=== PATIENT | female | born 1955 | race Caucasian/White ===

== ENCOUNTER → 2017-01-17 | Outpatient (CLI) | payer MEDICAID ==
[2014-07-02 12:11] VITALS: BP 134/71
[2017-01-17 10:00] LABS: BLOOD UREA NITROGEN 18 mg/dL (7-18); CALCIUM 9.7 mg/dL (8.5-10.1); CHLORIDE 102 mmol/L (98-107); CREATININE 0.79 mg/dL (0.55-1.02); SODIUM 139 mmol/L (136-145); eGFR BLACK RACES > 60 (>60); eGFR NON BLACK RACES > 60 (>60)
== END | disposition home or self-care (01) ==
LOC: LAB 09:32
PROVIDERS: ATTEND Family Medicine
DX: E87.5 Hyperkalemia (principal)
CPT/HCPCS: 36415; 80048

== ENCOUNTER 2022-05-10 08:10 | Inpatient (IN) ==
[2022-05-10 09:46] LABS: BASOPHILS % (AUTO) 0.1 % (0.2-1.0); HEMATOCRIT 30.3 % (36.0-47.0); HEMOGLOBIN 10.1 g/dL (12.0-16.0); LYMPHOCYTES # (AUTO) 0.6 X10^3/uL (1.3-2.9); LYMPHOCYTES % (AUTO) 5.2 % (21.0-51.0); MEAN CORPUSCULAR HEMOGLOBIN 26.9 pg (27.0-34.0); MEAN CORPUSCULAR HGB CONC 33.2 g/dL (33.0-35.0); MEAN CORPUSCULAR VOLUME 81.2 fL (80.0-100.0); MEAN PLATELET VOLUME 10.7 fL (7.4-11.0); MONOCYTES % (AUTO) 8.3 % (0.0-13.0); NEUTROPHILS # (AUTO) 10.2 x10^3/uL (2.2-4.8); NEUTROPHILS % (AUTO) 86.4 % (42.0-75.0); RED BLOOD COUNT 3.73 X10^6/uL (3.5-5.4); RED CELL DISTRIBUTION WIDTH 16.7 % (11.6-16.5); WHITE BLOOD COUNT 11.8 X10^3/uL (3.6-10.0)
[2022-05-10 09:53] LABS: INR 1.19 (0.8-1.3)
[2022-05-10] MEDS: NS 1,000 ML IV 1,000 ML IV SCH (09:55)
[2022-05-10] MEDS: ZOSYN VIAL 3.375 GRAMS 3.375 G in NS 100 ML IV 100 ML IV SCH ×3 (09:55→21:13)
[2022-05-10 09:58] LABS: ALANINE AMINOTRANSFERASE 86 Units/L (12-78); ALBUMIN 2.8 g/dL (3.4-5.0); ALKALINE PHOSPHATASE 128 Units/L (46-116); ASPARTATE AMINO TRANSFERASE 61 Units/L (15-37); BLOOD UREA NITROGEN 13 mg/dL (7-18); CALCIUM 8.8 mg/dL (8.5-10.1); CARBON DIOXIDE 24.1 mmol/L (21-32); CHLORIDE 96 mmol/L (98-107); COR CA(FOR HYPOALB) 9.8 mg/dL (8.5-10.1); COR NA(FOR HYPERGLY) 132 mmol/L (136-145); CREATININE 0.75 mg/dL (0.55-1.02); SODIUM 128 mmol/L (136-145); TOTAL PROTEIN 7.1 g/dL (6.4-8.2); eGFR NON BLACK RACES > 60 (>60)
[2022-05-10 10:02] LABS: LACTIC ACID 1.3 mmol/L (0.4-2.0)
--- NOTE | 2022-05-10 10:38 | DR.H&P ---
H&P History & Physical for Day of: H&P Date: 05/10/22 Chief Complaint Chief Complaint: abdominal discomfort, febrile Allergies Allergies Allergy/AdvReac Type Severity Reaction Status Date / Time azithromycin Allergy Unknown Unverified 07/30/19 17:22 codeine Allergy Unknown Unverified 07/30/19 17:22 morphine Allergy Unknown Unverified 07/30/19 17:22 IV DYE Allergy Uncoded 07/30/19 17:22 History of Present Illness History of Present Illness: Ms Biswas is a 66y/o female resident of [facility]. She has a hx of recurrent UTI and was treated over there with Rocephin IM for UTI. She was found to have positive blood Cx and worsening abdominal distension so admitted to the hospital for further evaluation. She was started on IV Zosyn and hydration. CTAP was done which showed enlarged liver and moderate stool. She reports not having a proper BM in a couple weeks, she has been taking Milk of Mag and other laxatives. Denies N/V. She reports decreased appetite. Labs/imaging reviewed Plan: will order liver US to assess further, order CXR. Start enema and insert rosas for accurate I&Os. Urine and Blood Cx showing gram neg rods, follow final cultures. Continue IV Zosyn and hydration. Resume home medications. Monitor AM labs/imaging. Past Medical History Past Medical History: Anxiety, Arthritis, Coronary Artery Disease, Dyslipidemia, GERD, Hypertension and Seizures Past Surgical History Surgical History: Hysterectomy, Ortho Surgery and Tonsillectomy Family History Family Medical History: Diabetes Mellitus and Hypertension Medications Home Medications: azithromycin Allergy (Unknown, Unverified 07/30/19 17:22) codeine Allergy (Unknown, Unverified 07/30/19 17:22) morphine Allergy (Unknown, Unverified 07/30/19 17:22) IV DYE Allergy (Uncoded 07/30/19 17:22) Labs Result Diagrams: 05/11/22 04:23 05/11/22 04:23 Labs: Laboratory WBC 11.8 X10^3/uL (3.6-10.0) H 05/10/22 09:29 RBC 3.73 X10^6/uL (3.5-5.4) 05/10/22 09:29 Hgb 10.1 g/dL (12.0-16.0) L 05/10/22 09: Hct 30.3 % (36.0-47.0) L 05/10/22 09: MCV 81.2 fL (80.0-100.0) 05/10/22 09: MCH 26.9 pg (27.0-34.0) L 05/10/22 09: MCHC 33.2 g/dL (33.0-35.0) 05/10/22 09: RDW 16.7 % (11.6-16.5) H 05/10/22 09: Plt Count 145 X10^3/uL (150.0-450.0) L 05/10/22 09: MPV 10.7 fL (7.4-11.0) 05/10/22 09: Neut % (Auto) 86.4 % (42.0-75.0) H 05/10/22 09: Lymph % (Auto) 5.2 % (21.0-51.0) L 05/10/22 09: [place] % (Auto) 8.3 % (0.0-13.0) 05/10/22 09: Eos % (Auto) 0.0 % (0.9-2.9) L 05/10/22 09: Baso % (Auto) 0.1 % (0.2-1.0) L 05/10/22 09: Neut # (Auto) 10.2 x10^3/uL (2.2-4.8) H 05/10/22 09: Lymph # (Auto) 0.6 X10^3/uL (1.3-2.9) L 05/10/22 09: [place] # (Auto) 1.0 x10^3/uL (0.3-0.8) H 05/10/22 09: Eos # (Auto) 0.0 x10^3/uL (0.0-0.2) 05/10/22 09: Baso # (Auto) 0.0 X10^3/uL (0.0-0.1) 05/10/22 09: Absolute Nucleated RBC 0.0 /100WBC 05/10/22 09: PT 14.7 SECONDS (11.8-14.3) 01/31/23 09:29 INR Target Range - 05/10/22 09:29 INR 1.19 (0.8-1.3) 05/10/22 09:29 APTT 46.8 SECONDS (22.9-36.5) H 05/10/22 09:29 PTT Comment - 05/10/22 09:29 Sodium 128 mmol/L (136-145) L 05/10/22 09:29 Corrected Sodium 132 mmol/L (136-145) L 05/10/22 09:29 Potassium 4.1 mmol/L (3.5-5.1) 05/10/22 09:29 Chloride 96 mmol/L (98-107) L 05/10/22 09:29 Carbon Dioxide 24.1 mmol/L (21-32) 05/10/22 09:29 BUN 13 mg/dL (7-18) 05/10/22 09:29 Creatinine 0.75 mg/dL (0.55-1.02) 05/10/22 09:29 Est GFR (MDRD) Af Amer > 60 (>60) 05/10/22 09:29 Est GFR (MDRD) Non-Af > 60 (>60) 05/10/22 09:29 Glucose 286 mg/dL (65-99) H 05/10/22 09:29 Lactic Acid 1.3 mmol/L (0.4-2.0) 05/10/22 09:29 Calcium 8.8 mg/dL (8.5-10.1) 05/10/22 09:29 Corrected Calcium 9.8 mg/dL (8.5-10.1) 05/10/22 09:29 Total Bilirubin 0.50 mg/dL (0.2-1.0) 05/10/22 09:29 AST 61 Units/L (15-37) H 05/10/22 09:29 ALT 86 Units/L (12-78) H 05/10/22 09:29 Alkaline Phosphatase 128 Units/L (46-116) H 05/10/22 09:29 Total Protein 7.1 g/dL (6.4-8.2) 05/10/22 09:29 Albumin 2.8 g/dL (3.4-5.0) L 05/10/22 09:29 Globulin 4.3 g/dL (2.5-4.5) 05/10/22 09:29 Albumin/Globulin Ratio 0.7 Ratio (1.1-2.1) L 05/10/22 09:29 Review of Systems Constitutional: Fever and Weakness Eyes: No Symptoms Reported ENT: No Symptoms Reported Respiratory: Cough Cardiovascular: No Symptoms Reported Gastrointestinal: Abdominal Pain and Constipation Genitourinary: No Symptoms Reported Musculoskeletal: No Symptoms Reported Skin: No Symptoms Reported Neurological: No Symptoms Reported Physical Exam Vital Signs: Pulse Rate 92 Respiratory Rate 30 Blood Pressure [Right Arm] 130/78 Blood Pressure [Left Arm] 135/68 Blood Pressure 127/60 Oriented: Normal Eyes: Normal Ear: Normal Nose: Normal Throat: Normal Respiratory: Diminished Throughout Cardiovascular: Tachycardia Auscultation: Bowel Sounds: Decreased Palpation: Normal Tenderness: Other (distended) Skin: Normal Musculoskeletal: Normal Psychiatric: Normal Mood Description: Calm Affect: Normal Speech Pattern: Clear and Appropriate Assessment/Plan (1) UTI (urinary tract infection): Status: Acute (2) Bacteremia: Status: Acute (3) Constipation: Status: Acute (4) Hepatic steatosis: Status: Acute (5) Abdominal pain: Status: Acute (6) Transaminitis: Status: Acute (7) GERD (gastroesophageal reflux disease): Qualifiers: Esophagitis presence: without esophagitis Qualified Code(s): K21.9 - Gastro-esophageal reflux disease without esophagitis Status: Chronic (8) CAD (coronary artery disease): Status: Chronic (9) Osteoarthritis: Status: Chronic (10) Essential hypertension: Status: Chronic (11) Diabetes mellitus: Status: Acute Review H&P Reviewed: Yes Patient was examined?: Yes
[2022-05-10 11:05] VITALS: BMI 40.4
--- NOTE | 2022-05-10 12:45 | CT ---
HISTORYABD DISTENTIONSTUDYABDOMEN/PELVIS W/O CONCOMPARISONCT abdomen and pelvis without contrast from 09/14/2019.TECHNIQUEMultiple axial images of the abdomen and pelvis were obtained from the lung bases to the upper thighs without the administration of IV contrast. Dose reduction techniques including Automated Exposure Control (AEC) and adjustment of mA and kV were utilized.FINDINGSLack of contrast limits evaluation.Moderate motion artifact through the lung bases is noted. Mild motion artifact through the abdomen and pelvis. No discernible pulmonary pathology. The heart is normal in size. There is diffuse hepatic steatosis. The liver appears enlarged and extends into the right lower quadrant. The gallbladder common duct, spleen, pancreas, adrenal glands, and kidneys have a benign noncontrast appearance. The urinary bladder appears benign. Status post hysterectomy. Small fat containing left inguinal hernia. Appendix is not visualized and may be surgically absent. Negative for bowel obstruction. Moderate amount of colonic stool. Moderately atherosclerotic normal caliber abdominal aorta. No pathologic adenopathy. No free air, free fluid or collection. No acute osseous abnormality. There is grade 1 anterolisthesis at L4-L5 secondary to severe facet arthropathy.IMPRESSIONHepatic steatosis. No renal calculus or hydronephrosis.Small fat containing left inguinal hernia.Electronically signed by: Julio Hughes (May 10, 2022 12:43:59)
[2022-05-10] MEDS: TYLENOL 325 MG TAB PO PRN (15:14)
[2022-05-10] MEDS: CARDIZEM CD 240 MG 24-HR PO SCH (15:19)
[2022-05-10] MEDS: TOVIAZ PO SCH (15:20)
[2022-05-10] MEDS: LINZESS PO SCH (15:20)
[2022-05-10] MEDS: COLACE CAP 100 MG PO SCH ×2 (15:20→21:13)
[2022-05-10] MEDS: ZESTRIL TAB 20 MG PO SCH (15:21)
[2022-05-10] MEDS: NovoLIN R (or HumuLIN R) SC PRN (16:09)
--- NOTE | 2022-05-10 17:42 | RAD ---
HISTORYsobSTUDYCHEST, 1 VIEWCOMPARISONJanuary 2022TECHNIQUEChest radiographic imaging, AP portable projection, 1 imageFINDINGSNo cardiomegaly.No focal airspace disease.No pleural effusion.No pneumothorax.No acute osseous abnormality.IMPRESSIONNo imaging findings of acute cardiopulmonary disease.Electronically signed by: Teddy Muir (May 10, 2022 17:40:58)
[2022-05-10 17:46] LABS: BILIRUBIN,URINE NEGATIVE (NEGATIVE); BLOOD/HEMOGLOBIN,URINE 4+ (NEGATIVE); GLUCOSE, URINE NEGATIVE (NEGATIVE); KETONES,URINE NEGATIVE (NEGATIVE); LEUKOCYTE ESTERASE ,URINE 3+ (NEGATIVE); NITRITES,URINE POSITIVE (NEGATIVE); PROTEIN,URINE 3+ (NEGATIVE); UROBILINOGEN,URINE NORMAL (NORMAL)
[2022-05-10 17:52] LABS: APPEARANCE,URINE HAZY (CLEAR); COLOR,URINE YELLOW (YELLOW)
[2022-05-10 17:53] LABS: BACTERIA,URINE 1+ /HPF (NEGATIVE); RBC,URINE 30-50 /HPF (0-3); SQUAMOUS EPITHELIAL CELL,UR RARE /HPF (NEGATIVE)
[2022-05-10] MEDS: NORCO 10/325 TAB PO PRN (19:18)
[2022-05-10] MEDS: MELATONIN PO SCH (21:12)
[2022-05-10] MEDS: MILK OF MAGNESIA PO SCH (21:12)
[2022-05-10] MEDS: REQUIP PO SCH (21:12)
[2022-05-10] MEDS: DULCOLAX TAB EC 5 MG PO SCH (21:13)
[2022-05-10] MEDS: ROBITUSSIN DM PO PRN (22:24)
[2022-05-11] MEDS: ROBITUSSIN DM PO PRN (03:42)
[2022-05-11 04:50] LABS: BASOPHILS % (AUTO) 0.2 % (0.2-1.0); EOSINOPHILS % (AUTO) 0.1 % (0.9-2.9); HEMATOCRIT 27.4 % (36.0-47.0); HEMOGLOBIN 9.3 g/dL (12.0-16.0); LYMPHOCYTES # (AUTO) 0.9 X10^3/uL (1.3-2.9); LYMPHOCYTES % (AUTO) 9.9 % (21.0-51.0); MEAN CORPUSCULAR HEMOGLOBIN 27.3 pg (27.0-34.0); MEAN CORPUSCULAR VOLUME 80.3 fL (80.0-100.0); MEAN PLATELET VOLUME 10.7 fL (7.4-11.0); MONOCYTES # (AUTO) 1.3 x10^3/uL (0.3-0.8); MONOCYTES % (AUTO) 13.5 % (0.0-13.0); NEUTROPHILS # (AUTO) 7.3 x10^3/uL (2.2-4.8); NEUTROPHILS % (AUTO) 76.3 % (42.0-75.0); RED BLOOD COUNT 3.41 X10^6/uL (3.5-5.4); RED CELL DISTRIBUTION WIDTH 17.2 % (11.6-16.5); WHITE BLOOD COUNT 9.5 X10^3/uL (3.6-10.0)
[2022-05-11 05:02] LABS: ALANINE AMINOTRANSFERASE 100 Units/L (12-78); ALBUMIN 2.5 g/dL (3.4-5.0); ALKALINE PHOSPHATASE 136 Units/L (46-116); ASPARTATE AMINO TRANSFERASE 72 Units/L (15-37); BLOOD UREA NITROGEN 12 mg/dL (7-18); CALCIUM 8.6 mg/dL (8.5-10.1); CARBON DIOXIDE 27.3 mmol/L (21-32); CHLORIDE 96 mmol/L (98-107); COR CA(FOR HYPOALB) 9.8 mg/dL (8.5-10.1); COR NA(FOR HYPERGLY) 132 mmol/L (136-145); CREATININE 0.53 mg/dL (0.55-1.02); SODIUM 130 mmol/L (136-145); TOTAL PROTEIN 6.7 g/dL (6.4-8.2); eGFR NON BLACK RACES > 60 (>60)
[2022-05-11] MEDS: ZOSYN VIAL 3.375 GRAMS 3.375 G in NS 100 ML IV 100 ML IV SCH (05:23)
[2022-05-11] MEDS: NORCO 10/325 TAB PO PRN ×2 (05:23→14:30)
[2022-05-11] MEDS: NovoLIN R (or HumuLIN R) SC PRN (06:01)
[2022-05-11] MEDS ORDERED: ZESTRIL TAB 20 MG ONE (08:26)
[2022-05-11] MEDS: REQUIP PO SCH ×2 (08:30→21:34)
[2022-05-11] MEDS: LINZESS PO SCH (08:30)
[2022-05-11] MEDS: CARDIZEM CD 240 MG 24-HR PO SCH (08:30)
[2022-05-11] MEDS: COLACE CAP 100 MG PO SCH ×2 (08:31→21:33)
[2022-05-11] MEDS: ZESTRIL TAB 20 MG PO SCH (08:32)
[2022-05-11] MEDS: SINGULAIR TAB 10 MG PO SCH (08:33)
[2022-05-11] MEDS: PROTONIX INJ 40 MG VIAL IVP SCH (08:33)
[2022-05-11] MEDS: HEMOCYTE-PLUS PO SCH (08:33)
[2022-05-11] MEDS: NS 1,000 ML IV 1,000 ML IV SCH ×2 (08:34→14:01)
[2022-05-11] MEDS: CITRACAL + VITAMIN D PO SCH (08:35)
--- NOTE | 2022-05-11 08:58 | US ---
HISTORYElevated LFTs, sepsisSTUDYUltrasound liverCOMPARISONNoneTECHNIQUEMultiple clay scale and color flow Doppler images of the right upper quadrant of the abdomen were obtained with image documentation.FINDINGSLiver is echogenic suggesting fatty infiltration. Hepatopetal portal venous flow is seen on Doppler ultrasound. Hepatic artery and vein are patent. No evidence of cholelithiasis or cholecystitis. No biliary ductal dilation.IMPRESSIONThere is likely fatty infiltration of the liver.Electronically signed by: Red Rojas (May 11, 2022 08:57:05)
[2022-05-11] MEDS: LOVENOX INJ 40 MG SYR SC SCH (09:47)
[2022-05-11] MEDS: TOVIAZ PO SCH (09:47)
[2022-05-11] MEDS: MERREM VIAL 1 G in NS 100 ML IV 100 ML IV SCH ×3 (09:47→21:34)
--- NOTE | 2022-05-11 09:55 | PCM.PROG ---
Progress Note Progress Note for Day of Date of Exam: 05/11/22 Subjective Subjective: Patient seen at bedside, no acute events overnight. She had 2 small BMs after enema. She states she is feeling better, not as much abdominal discomfort. She has been on 2L NC, sats > 95%. Labs/imaging reviewed CXR: no acute process Urine and Blood Cx: E.coli ESBL + Plan: f/u on Liver US. Change Zosyn to Merrem. Continue hydration. Continue home medications. Monitor I&Os. Monitor labs and imaging. Past Medical Family Social History Allergies: Allergies azithromycin Allergy (Unknown, Unverified 07/30/19 17:22) codeine Allergy (Unknown, Unverified 07/30/19 17:22) morphine Allergy (Unknown, Unverified 07/30/19 17:22) IV DYE Allergy (Uncoded 07/30/19 17:22) Vital Signs and I&O's Vital Signs: Temperature 98.5 F Pulse Rate 80 Respiratory Rate 25 Blood Pressure [Right Arm] 130/78 Blood Pressure [Left Arm] 135/68 Blood Pressure 120/56 O2 Sat by Pulse Oximetry 94 Intake and Output: Intake & Output 05/08/22 05/09/22 05/10/22 05/11/22 23:59 23:59 23:59 23:59 Intake Total 2732 / 2732 691 / 691 Output Total 380 / 380 320 / 320 Balance 2352 / 2352 371 / 371 Physical Exam Oriented: Normal Eyes: Normal Ear: Normal Nose: Normal Throat: Normal Cardiovascular: Tachycardia Auscultation: Bowel Sounds: Normal Tenderness: Other (distended) Skin: Normal Musculoskeletal: Normal Psychiatric: Normal Mood Description: Calm Affect: Normal Speech Pattern: Clear and Appropriate Laboratory and Diagnostics Result Diagrams: 05/11/22 04:23 05/11/22 04:23 Labs: 05/10/22 17:23 Urine,Catheterized Urine Culture - Preliminary Laboratory WBC 9.5 X10^3/uL (3.6-10.0) 05/11/22 04: RBC 3.41 X10^6/uL (3.5-5.4) L 05/11/22 04: Hgb 9.3 g/dL (12.0-16.0) L 05/11/22 04: Hct 27.4 % (36.0-47.0) L 05/11/22 04:23 MCV 80.3 fL (80.0-100.0) 05/11/22 04:23 MCH 27.3 pg (27.0-34.0) 05/11/22 04: MCHC 34.0 g/dL (33.0-35.0) 05/11/22 04:23 RDW 17.2 % (11.6-16.5) H 05/11/22 04:23 Plt Count 135 X10^3/uL (150.0-450.0) L 05/11/22 04:23 MPV 10.7 fL (7.4-11.0) 05/11/22 04:23 Neut % (Auto) 76.3 % (42.0-75.0) H 05/11/22 04: Lymph % (Auto) 9.9 % (21.0-51.0) L 05/11/22 04:23 [place] % (Auto) 13.5 % (0.0-13.0) H 05/11/22 04:23 Eos % (Auto) 0.1 % (0.9-2.9) L 05/11/22 04:23 Baso % (Auto) 0.2 % (0.2-1.0) 05/11/22 04: Neut # (Auto) 7.3 x10^3/uL (2.2-4.8) H 05/11/22 04:23 Lymph # (Auto) 0.9 X10^3/uL (1.3-2.9) L 05/11/22 04:23 [place] # (Auto) 1.3 x10^3/uL (0.3-0.8) H 05/11/22 04:23 Eos # (Auto) 0.0 x10^3/uL (0.0-0.2) 05/11/22 04:23 Baso # (Auto) 0.0 X10^3/uL (0.0-0.1) 05/11/22 04: Absolute Nucleated RBC 0.0 /100WBC 05/11/22 04: PT 14.7 SECONDS (11.8-14.3) 05/10/22 09:29 INR Target Range - 05/10/22 09:29 INR 1.19 (0.8-1.3) 05/10/22 09:29 APTT 46.8 SECONDS (22.9-36.5) H 05/10/22 09:29 PTT Comment - 05/10/22 09:29 Sodium 130 mmol/L (136-145) L 05/11/22 04:23 Corrected Sodium 132 mmol/L (136-145) L 05/11/22 04:23 Potassium 4.0 mmol/L (3.5-5.1) 05/11/22 04:23 Chloride 96 mmol/L (98-107) L 05/11/22 04:23 Carbon Dioxide 27.3 mmol/L (21-32) 05/11/22 04:23 BUN 12 mg/dL (7-18) 05/11/22 04:23 Creatinine 0.53 mg/dL (0.55-1.02) L 05/11/22 04:23 Est GFR (MDRD) Af Amer > 60 (>60) 05/11/22 04:23 Est GFR (MDRD) Non-Af > 60 (>60) 05/11/22 04:23 Glucose 173 mg/dL (65-99) H 05/11/22 04:23 POC Glucose (mg/dL) 306 mg/dL (65-99) H 05/11/22 05:41 Lactic Acid 0.8 mmol/L (0.4-2.0) 05/10/22 13:58 Calcium 8.6 mg/dL (8.5-10.1) 05/11/22 04:23 Corrected Calcium 9.8 mg/dL (8.5-10.1) 05/11/22 04:23 Total Bilirubin 0.40 mg/dL (0.2-1.0) 05/11/22 04:23 AST 72 Units/L (15-37) H 05/11/22 04:23 ALT 100 Units/L (12-78) H 05/11/22 04:23 Alkaline Phosphatase 136 Units/L (46-116) H 05/11/22 04:23 Total Protein 6.7 g/dL (6.4-8.2) 05/11/22 04:23 Albumin 2.5 g/dL (3.4-5.0) L 05/11/22 04:23 Globulin 4.2 g/dL (2.5-4.5) 05/11/22 04: Albumin/Globulin Ratio 0.6 Ratio (1.1-2.1) L 05/11/22 04:23 Specimen Type Catherized urine 05/10/22 17:23 Urine Color Yellow (YELLOW) 05/10/22 17:23 Urine Appearance Hazy (CLEAR) 05/10/22 17: Urine pH 6.0 (5.0 - 8.0) 05/10/22 17:23 Ur Specific [place] 1.015 (1.000-1.030) 05/10/22 17:23 Urine Protein 3+ (NEGATIVE) 05/10/22 17: Urine Glucose (UA) Negative (NEGATIVE) 05/10/22 17: Urine Ketones Negative (NEGATIVE) 05/10/22 17: Urine Blood 4+ (NEGATIVE) 05/10/22 17:23 Urine Nitrite Positive (NEGATIVE) 05/10/22 17: Urine Bilirubin Negative (NEGATIVE) 05/10/22 17: Urine Urobilinogen Normal (NORMAL) 05/10/22 17:23 Ur Leukocyte Esterase 3+ (NEGATIVE) 05/10/22 17:23 Urine RBC 30-50 /HPF (0-3) A 05/10/22 17: Urine WBC 20-30 /HPF (0-5) A 05/10/22 17:23 Ur Squamous Epith Cells Rare /HPF (NEGATIVE) 05/10/22 17:23 Urine Bacteria 1+ /HPF (NEGATIVE) 05/10/22 17:23 Ur Culture Indicated? Yes/culture set up 05/10/22 17:23 Plan (1) UTI (urinary tract infection): Status: Acute (2) Bacteremia: Status: Acute (3) Constipation: Status: Acute (4) Hepatic steatosis: Status: Acute (5) Abdominal pain: Status: Acute (6) Transaminitis: Status: Acute (7) GERD (gastroesophageal reflux disease): Status: Chronic Qualifiers: Esophagitis presence: without esophagitis Qualified Code(s): K21.9 - Gastro-esophageal reflux disease without esophagitis (8) CAD (coronary artery disease): Status: Chronic (9) Osteoarthritis: Status: Chronic (10) Essential hypertension: Status: Chronic (11) Diabetes mellitus: Status: Acute
[2022-05-11] MEDS: TYLENOL 325 MG TAB PO PRN (15:23)
[2022-05-11] MEDS: PEPCID TAB 20 MG PO SCH (21:32)
[2022-05-11] MEDS: MELATONIN PO SCH (21:32)
[2022-05-11] MEDS: DULCOLAX TAB EC 5 MG PO SCH (21:33)
[2022-05-11] MEDS: MILK OF MAGNESIA PO SCH (21:33)
[2022-05-12 05:10] LABS: BASOPHILS % (AUTO) 0.1 % (0.2-1.0); EOSINOPHILS # (AUTO) 0.1 x10^3/uL (0.0-0.2); EOSINOPHILS % (AUTO) 0.6 % (0.9-2.9); HEMATOCRIT 26.9 % (36.0-47.0); HEMOGLOBIN 9.2 g/dL (12.0-16.0); LYMPHOCYTES % (AUTO) 9.5 % (21.0-51.0); MEAN CORPUSCULAR HEMOGLOBIN 27.5 pg (27.0-34.0); MEAN CORPUSCULAR HGB CONC 34.1 g/dL (33.0-35.0); MEAN CORPUSCULAR VOLUME 80.7 fL (80.0-100.0); MEAN PLATELET VOLUME 11.1 fL (7.4-11.0); MONOCYTES # (AUTO) 1.2 x10^3/uL (0.3-0.8); MONOCYTES % (AUTO) 11.9 % (0.0-13.0); NEUTROPHILS # (AUTO) 8.1 x10^3/uL (2.2-4.8); NEUTROPHILS % (AUTO) 77.9 % (42.0-75.0); RED BLOOD COUNT 3.33 X10^6/uL (3.5-5.4); RED CELL DISTRIBUTION WIDTH 17.1 % (11.6-16.5); WHITE BLOOD COUNT 10.4 X10^3/uL (3.6-10.0)
[2022-05-12] MEDS: NS 1,000 ML IV 1,000 ML IV SCH (05:19)
[2022-05-12] MEDS: MERREM VIAL 1 G in NS 100 ML IV 100 ML IV SCH ×3 (05:25→21:44)
[2022-05-12 05:33] LABS: ALANINE AMINOTRANSFERASE 125 Units/L (12-78); ALBUMIN 2.2 g/dL (3.4-5.0); ALKALINE PHOSPHATASE 177 Units/L (46-116); ASPARTATE AMINO TRANSFERASE 68 Units/L (15-37); BLOOD UREA NITROGEN 8 mg/dL (7-18); CALCIUM 8.5 mg/dL (8.5-10.1); CARBON DIOXIDE 27.7 mmol/L (21-32); CHLORIDE 96 mmol/L (98-107); COR CA(FOR HYPOALB) 9.9 mg/dL (8.5-10.1); COR NA(FOR HYPERGLY) 133 mmol/L (136-145); CREATININE 0.45 mg/dL (0.55-1.02); SODIUM 132 mmol/L (136-145); TOTAL PROTEIN 6.5 g/dL (6.4-8.2); eGFR NON BLACK RACES > 60 (>60)
[2022-05-12] MEDS ORDERED: ZESTRIL TAB 20 MG ONE (08:23)
[2022-05-12] MEDS: CARDIZEM CD 240 MG 24-HR PO SCH (08:29)
[2022-05-12] MEDS: PROTONIX INJ 40 MG VIAL IVP SCH (08:29)
[2022-05-12] MEDS: COLACE CAP 100 MG PO SCH ×2 (08:30→21:37)
[2022-05-12] MEDS: PEPCID TAB 20 MG PO SCH ×2 (08:31→21:37)
[2022-05-12] MEDS: HEMOCYTE-PLUS PO SCH (08:31)
[2022-05-12] MEDS: REQUIP PO SCH ×2 (08:31→21:36)
[2022-05-12] MEDS: SINGULAIR TAB 10 MG PO SCH (08:31)
[2022-05-12] MEDS: LOVENOX INJ 40 MG SYR SC SCH (08:37)
[2022-05-12] MEDS: LINZESS PO SCH (08:39)
[2022-05-12] MEDS: ZESTRIL TAB 20 MG PO SCH (08:39)
[2022-05-12] MEDS: CITRACAL + VITAMIN D PO SCH (08:39)
[2022-05-12] MEDS: TOVIAZ PO SCH (08:39)
--- NOTE | 2022-05-12 09:51 | PCM.PROG ---
Progress Note Progress Note for Day of Date of Exam: 05/12/22 Subjective Subjective: Patient seen at bedside, no acute events overnight. She states her abdomen feels distended again. Liver US showed fatty liver. She had small BMs yesterday. Denies N/V. She has been tolerating PO intake. Labs/imaging reviewed CXR: no acute process Urine and Blood Cx: E.coli ESBL + Plan: Will repeat KUB, continue Merrem. DC IVF. Continue home medications. Monitor I&Os. PT/OT as tolerated. Monitor labs and imaging. Past Medical Family Social History Allergies: Allergies azithromycin Allergy (Unknown, Unverified 07/30/19 17:22) codeine Allergy (Unknown, Unverified 07/30/19 17:22) morphine Allergy (Unknown, Unverified 07/30/19 17:22) IV DYE Allergy (Uncoded 07/30/19 17:22) Vital Signs and I&O's Vital Signs: Temperature 98.4 F Pulse Rate 90 Respiratory Rate 45 Blood Pressure [Right Arm] 130/78 Blood Pressure [Left Arm] 135/68 Blood Pressure 120/56 O2 Sat by Pulse Oximetry 97 Intake and Output: Intake & Output 05/09/22 05/10/22 05/11/22 05/12/22 23:59 23:59 23:59 23:59 Intake Total 2732 / 2732 2643 / 2643 599 / 599 Output Total 380 / 380 1320 / 1320 800 / 800 Balance 2352 / 2352 1323 / 1323 -201 / -201 Physical Exam Oriented: Normal Eyes: Normal Ear: Normal Nose: Normal Throat: Normal Cardiovascular: Normal Auscultation: Bowel Sounds: Normal Tenderness: Diffuse, Mild and Other (distended); negative Guarding or Rigidity Skin: Normal Musculoskeletal: Normal Psychiatric: Normal Mood Description: Calm Affect: Normal Speech Pattern: Clear and Appropriate Laboratory and Diagnostics Result Diagrams: 05/12/22 04:05 05/12/22 04:05 Labs: 05/10/22 17:23 Urine,Catheterized Urine Culture - Preliminary Laboratory WBC 10.4 X10^3/uL (3.6-10.0) H 05/12/22 04:05 RBC 3.33 X10^6/uL (3.5-5.4) L 05/12/22 04:05 Hgb 9.2 g/dL (12.0-16.0) L 05/12/22 04:05 Hct 26.9 % (36.0-47.0) L 05/12/22 04:05 MCV 80.7 fL (80.0-100.0) 05/12/22 04:05 MCH 27.5 pg (27.0-34.0) 05/12/22 04:05 MCHC 34.1 g/dL (33.0-35.0) 05/12/22 04:05 RDW 17.1 % (11.6-16.5) H 05/12/22 04:05 Plt Count 157 X10^3/uL (150.0-450.0) 05/12/22 04:05 MPV 11.1 fL (7.4-11.0) H 05/12/22 04:05 Neut % (Auto) 77.9 % (42.0-75.0) H 05/12/22 04:05 Lymph % (Auto) 9.5 % (21.0-51.0) L 05/12/22 04:05 [place] % (Auto) 11.9 % (0.0-13.0) 05/12/22 04:05 Eos % (Auto) 0.6 % (0.9-2.9) L 05/12/22 04:05 Baso % (Auto) 0.1 % (0.2-1.0) L 05/12/22 04:05 Neut # (Auto) 8.1 x10^3/uL (2.2-4.8) H 05/12/22 04:05 Lymph # (Auto) 1.0 X10^3/uL (1.3-2.9) L 05/12/22 04:05 [place] # (Auto) 1.2 x10^3/uL (0.3-0.8) H 05/12/22 04:05 Eos # (Auto) 0.1 x10^3/uL (0.0-0.2) 05/12/22 04:05 Baso # (Auto) 0.0 X10^3/uL (0.0-0.1) 05/12/22 04:05 Absolute Nucleated RBC 0.0 /100WBC 05/12/22 04:05 PT 14.7 SECONDS (11.8-14.3) 05/10/22 09:29 INR Target Range - 05/10/22 09:29 INR 1.19 (0.8-1.3) 05/10/22 09:29 APTT 46.8 SECONDS (22.9-36.5) H 05/10/22 09:29 PTT Comment - 05/10/22 09:29 Sodium 132 mmol/L (136-145) L 05/12/22 04:05 Corrected Sodium 133 mmol/L (136-145) L 05/12/22 04:05 Potassium 3.7 mmol/L (3.5-5.1) 05/12/22 04:05 Chloride 96 mmol/L (98-107) L 05/12/22 04:05 Carbon Dioxide 27.7 mmol/L (21-32) 05/12/22 04:05 BUN 8 mg/dL (7-18) 05/12/22 04:05 Creatinine 0.45 mg/dL (0.55-1.02) L 05/12/22 04:05 Est GFR (MDRD) Af Amer > 60 (>60) 05/12/22 04:05 Est GFR (MDRD) Non-Af > 60 (>60) 05/12/22 04:05 Glucose 145 mg/dL (65-99) H 05/12/22 04:05 POC Glucose (mg/dL) 153 mg/dL (65-99) H 05/12/22 05:27 Lactic Acid 0.8 mmol/L (0.4-2.0) 05/10/22 13:58 Calcium 8.5 mg/dL (8.5-10.1) 05/12/22 04:05 Corrected Calcium 9.9 mg/dL (8.5-10.1) 05/12/22 04:05 Total Bilirubin 0.30 mg/dL (0.2-1.0) 05/12/22 04:05 AST 68 Units/L (15-37) H 05/12/22 04:05 ALT 125 Units/L (12-78) H 05/12/22 04:05 Alkaline Phosphatase 177 Units/L (46-116) H 05/12/22 04:05 Total Protein 6.5 g/dL (6.4-8.2) 05/12/22 04:05 Albumin 2.2 g/dL (3.4-5.0) L 05/12/22 04:05 Globulin 4.3 g/dL (2.5-4.5) 05/12/22 04:05 Albumin/Globulin Ratio 0.5 Ratio (1.1-2.1) L 05/12/22 04:05 Specimen Type Catherized urine 05/10/22 17: Urine Color Yellow (YELLOW) 05/10/22 17: Urine Appearance Hazy (CLEAR) 05/10/22 17: Urine pH 6.0 (5.0 - 8.0) 05/10/22 17: Ur Specific [place] 1.015 (1.000-1.030) 05/10/22 17: Urine Protein 3+ (NEGATIVE) 05/10/22 17: Urine Glucose (UA) Negative (NEGATIVE) 05/10/22 17: Urine Ketones Negative (NEGATIVE) 05/10/22 17: Urine Blood 4+ (NEGATIVE) 05/10/22 17: Urine Nitrite Positive (NEGATIVE) 05/10/22 17: Urine Bilirubin Negative (NEGATIVE) 05/10/22 17: Urine Urobilinogen Normal (NORMAL) 05/10/22 17: Ur Leukocyte Esterase 3+ (NEGATIVE) 05/10/22 17: Urine RBC 30-50 /HPF (0-3) A 05/10/22 17: Urine WBC 20-30 /HPF (0-5) A 05/10/22 17:23 Ur Squamous Epith Cells Rare /HPF (NEGATIVE) 05/10/22 17: Urine Bacteria 1+ /HPF (NEGATIVE) 05/10/22 17:23 Ur Culture Indicated? Yes/culture set up 05/10/22 17:23 Plan (1) UTI (urinary tract infection): Status: Acute (2) Bacteremia: Status: Acute (3) Constipation: Status: Acute (4) Hepatic steatosis: Status: Acute (5) Abdominal pain: Status: Acute (6) Transaminitis: Status: Acute (7) GERD (gastroesophageal reflux disease): Status: Chronic Qualifiers: Esophagitis presence: without esophagitis Qualified Code(s): K21.9 - Gastro-esophageal reflux disease without esophagitis (8) CAD (coronary artery disease): Status: Chronic (9) Osteoarthritis: Status: Chronic (10) Essential hypertension: Status: Chronic (11) Diabetes mellitus: Status: Acute
--- NOTE | 2022-05-12 10:00 | RAD ---
HISTORYABDOMINAL PAIN, ABDOMINAL DISTENTIONSTUDYKUBCOMPARISONCT abdomen pelvis 05/10/2022.TECHNIQUESupine KUB, 3 images.FINDINGSLargely gas distended structure, likely stomach, extending into the right lower quadrant. Nonobstructive small bowel gas pattern. No definite pneumatosis, free air, or portal venous gas. No suspicious abdominal calcifications.IMPRESSIONGas distended structure, likely stomach, may be due to gastric outlet obstruction or gastroparesis. Consider CT for further evaluation as clinically warranted.Electronically signed by: Julio Hughes (May 12, 2022 09:58:47)
[2022-05-12] MEDS: REGLAN TAB 5 MG PO SCH ×3 (11:14→21:38)
[2022-05-12] MEDS: NORCO 10/325 TAB PO PRN (13:55)
[2022-05-12] MEDS: MELATONIN PO SCH (21:36)
[2022-05-12] MEDS: MILK OF MAGNESIA PO SCH (21:37)
[2022-05-12] MEDS: DULCOLAX TAB EC 5 MG PO SCH (21:37)
[2022-05-13] MEDS ORDERED: NS 1,000 ML IV 1,000 ML ONE (01:47)
[2022-05-13 05:11] LABS: BASOPHILS % (AUTO) 0.4 % (0.2-1.0); EOSINOPHILS # (AUTO) 0.1 x10^3/uL (0.0-0.2); EOSINOPHILS % (AUTO) 0.9 % (0.9-2.9); HEMATOCRIT 27.4 % (36.0-47.0); HEMOGLOBIN 9.3 g/dL (12.0-16.0); LYMPHOCYTES # (AUTO) 1.5 X10^3/uL (1.3-2.9); LYMPHOCYTES % (AUTO) 13.2 % (21.0-51.0); MEAN CORPUSCULAR HEMOGLOBIN 27.2 pg (27.0-34.0); MEAN CORPUSCULAR HGB CONC 33.8 g/dL (33.0-35.0); MEAN CORPUSCULAR VOLUME 80.3 fL (80.0-100.0); MEAN PLATELET VOLUME 10.6 fL (7.4-11.0); MONOCYTES % (AUTO) 9.3 % (0.0-13.0); NEUTROPHILS # (AUTO) 8.4 x10^3/uL (2.2-4.8); NEUTROPHILS % (AUTO) 76.2 % (42.0-75.0); RED BLOOD COUNT 3.41 X10^6/uL (3.5-5.4); RED CELL DISTRIBUTION WIDTH 16.9 % (11.6-16.5)
[2022-05-13 05:23] LABS: ALANINE AMINOTRANSFERASE 116 Units/L (12-78); ALBUMIN 2.1 g/dL (3.4-5.0); ALKALINE PHOSPHATASE 191 Units/L (46-116); ASPARTATE AMINO TRANSFERASE 51 Units/L (15-37); BLOOD UREA NITROGEN 8 mg/dL (7-18); CALCIUM 8.6 mg/dL (8.5-10.1); CARBON DIOXIDE 31.6 mmol/L (21-32); CHLORIDE 99 mmol/L (98-107); COR CA(FOR HYPOALB) 10.1 mg/dL (8.5-10.1); COR NA(FOR HYPERGLY) 139 mmol/L (136-145); CREATININE 0.45 mg/dL (0.55-1.02); SODIUM 138 mmol/L (136-145); TOTAL PROTEIN 6.3 g/dL (6.4-8.2); eGFR NON BLACK RACES > 60 (>60)
[2022-05-13] MEDS: MERREM VIAL 1 G in NS 100 ML IV 100 ML IV SCH ×3 (06:01→21:40)
[2022-05-13] MEDS: REGLAN TAB 5 MG PO SCH ×4 (06:02→21:10)
[2022-05-13] MEDS ORDERED: ZESTRIL TAB 20 MG ONE (07:46)
[2022-05-13] MEDS: PROTONIX INJ 40 MG VIAL IVP SCH (08:30)
[2022-05-13] MEDS: COLACE CAP 100 MG PO SCH ×2 (08:30→21:11)
[2022-05-13] MEDS: HEMOCYTE-PLUS PO SCH (08:31)
[2022-05-13] MEDS: LOVENOX INJ 40 MG SYR SC SCH (08:31)
[2022-05-13] MEDS: CITRACAL + VITAMIN D PO SCH (08:33)
[2022-05-13] MEDS: PEPCID TAB 20 MG PO SCH ×2 (08:34→21:10)
[2022-05-13] MEDS: SINGULAIR TAB 10 MG PO SCH (08:34)
[2022-05-13] MEDS: CARDIZEM CD 240 MG 24-HR PO SCH (08:34)
[2022-05-13] MEDS: ZESTRIL TAB 20 MG PO SCH (08:34)
[2022-05-13] MEDS: REQUIP PO SCH ×2 (08:34→21:11)
[2022-05-13] MEDS: LINZESS PO SCH (08:34)
[2022-05-13] MEDS: TOVIAZ PO SCH (08:53)
[2022-05-13] MEDS: NORCO 10/325 TAB PO PRN ×2 (13:37→21:17)
[2022-05-13] MEDS: MELATONIN PO SCH (21:10)
[2022-05-13] MEDS: MILK OF MAGNESIA PO SCH (21:12)
[2022-05-13] MEDS: DULCOLAX TAB EC 5 MG PO SCH (21:12)
[2022-05-14 05:16] LABS: BASOPHILS % (AUTO) 0.5 % (0.2-1.0); EOSINOPHILS # (AUTO) 0.2 x10^3/uL (0.0-0.2); EOSINOPHILS % (AUTO) 1.7 % (0.9-2.9); HEMATOCRIT 27.6 % (36.0-47.0); HEMOGLOBIN 9.1 g/dL (12.0-16.0); LYMPHOCYTES # (AUTO) 1.7 X10^3/uL (1.3-2.9); LYMPHOCYTES % (AUTO) 15.3 % (21.0-51.0); MEAN CORPUSCULAR HEMOGLOBIN 26.9 pg (27.0-34.0); MEAN CORPUSCULAR HGB CONC 33.1 g/dL (33.0-35.0); MEAN CORPUSCULAR VOLUME 81.1 fL (80.0-100.0); MEAN PLATELET VOLUME 10.1 fL (7.4-11.0); MONOCYTES % (AUTO) 8.9 % (0.0-13.0); NEUTROPHILS # (AUTO) 8.1 x10^3/uL (2.2-4.8); NEUTROPHILS % (AUTO) 73.6 % (42.0-75.0); RED CELL DISTRIBUTION WIDTH 17.5 % (11.6-16.5); WHITE BLOOD COUNT 10.9 X10^3/uL (3.6-10.0)
[2022-05-14 05:27] LABS: ALANINE AMINOTRANSFERASE 120 Units/L (12-78); ALBUMIN 2.1 g/dL (3.4-5.0); ALKALINE PHOSPHATASE 200 Units/L (46-116); ASPARTATE AMINO TRANSFERASE 57 Units/L (15-37); BLOOD UREA NITROGEN 11 mg/dL (7-18); CALCIUM 8.5 mg/dL (8.5-10.1); CARBON DIOXIDE 33.3 mmol/L (21-32); CHLORIDE 100 mmol/L (98-107); COR NA(FOR HYPERGLY) 139 mmol/L (136-145); CREATININE 0.48 mg/dL (0.55-1.02); SODIUM 139 mmol/L (136-145); TOTAL PROTEIN 6.2 g/dL (6.4-8.2); eGFR NON BLACK RACES > 60 (>60)
[2022-05-14] MEDS: MERREM VIAL 1 G in NS 100 ML IV 100 ML IV SCH ×3 (06:01→21:13)
[2022-05-14] MEDS: REGLAN TAB 5 MG PO SCH ×2 (07:47→11:41)
[2022-05-14] MEDS ORDERED: ZESTRIL TAB 20 MG ONE (08:20)
[2022-05-14] MEDS: LOVENOX INJ 40 MG SYR SC SCH (08:31)
[2022-05-14] MEDS: CITRACAL + VITAMIN D PO SCH (08:32)
[2022-05-14] MEDS: LINZESS PO SCH (08:32)
[2022-05-14] MEDS: PROTONIX INJ 40 MG VIAL IVP SCH (08:32)
[2022-05-14] MEDS: HEMOCYTE-PLUS PO SCH (08:32)
[2022-05-14] MEDS: NORCO 10/325 TAB PO PRN ×2 (08:33→15:45)
[2022-05-14] MEDS: ZESTRIL TAB 20 MG PO SCH (08:34)
[2022-05-14] MEDS: CARDIZEM CD 240 MG 24-HR PO SCH (08:34)
[2022-05-14] MEDS: PEPCID TAB 20 MG PO SCH ×2 (08:34→20:17)
[2022-05-14] MEDS: SINGULAIR TAB 10 MG PO SCH (08:34)
[2022-05-14] MEDS: REQUIP PO SCH ×2 (08:34→20:17)
[2022-05-14] MEDS: TOVIAZ PO SCH (08:34)
[2022-05-14] MEDS: COLACE CAP 100 MG PO SCH ×2 (08:35→20:17)
[2022-05-14] MEDS ORDERED: K-DUR TAB 20 MEQ PO PRN (12:01)
[2022-05-14] MEDS ORDERED: POTASSIUM CHL 60 MEQ/NS 0.45% 500 ML IV PRN (12:01)
[2022-05-14] MEDS ORDERED: K-RIDER 10 MEQ/NS 100 ML 10 MEQ/100 ML BAG IV PRN (12:01)
[2022-05-14] MEDS ORDERED: POTASSIUM CHL 40 MEQ/NS 0.45% 500 ML IV PRN (12:01)
[2022-05-14] MEDS ORDERED: POTASSIUM CHLORIDE LIQ 20 MEQ UDC PO PRN (12:01)
[2022-05-14] MEDS ORDERED: MICRO K EXTEN CAP 10 MEQ PO PRN (12:01)
--- NOTE | 2022-05-14 12:23 | RAD ---
HISTORYAbdominal distension.STUDYAbdomen one viewCOMPARISONKUB from 05/12/2022.FINDINGSTubes/lines: None.Bowel gas pattern: March gas is distension of the stomach is again seen with mild gas is distension of the small bowel and colon. The colon contains a moderate amount of stool.Free air: None seen.Additional findings: None.IMPRESSIONPersistent severe gaseous distension of the stomach with an otherwise nonspecific, nonobstructive bowel gas pattern.Electronically signed by: jV Ruffin (May 14, 2022 12:21:50)
--- NOTE | 2022-05-14 12:25 | DR.PROGNOT ---
HOSPITAL PROGRESS NOTE Progress Note for Day of: Progress Note Date: 05/14/22 Chief Complaint Chief Complaint: c/o abdominal distention , heartburn , nausea . had normal BM yesterday . last KUB showed dilated stomach . afebrile History of Present Illness History of Present Illness: no changes .. diabetic , very limited ambulation . UTI Past Medical Family Social History Allergies: Allergies azithromycin Allergy (Unknown, Verified 05/12/22 10:25) codeine Allergy (Unknown, Verified 05/12/22 10:25) morphine Allergy (Unknown, Verified 05/12/22 10:25) IV DYE Allergy (Unknown, Uncoded 05/12/22 10:25) Vital Signs Vital Signs: Temperature 98.2 F Pulse Rate 83 Respiratory Rate 24 Blood Pressure [Right Arm] 130/78 Blood Pressure [Left Arm] 135/68 Blood Pressure 153/70 O2 Sat by Pulse Oximetry 99 Physical Exam Oriented: Normal Eyes: Normal Ear: Normal Nose: Normal Throat: Normal Cardiovascular: Normal GI:Auscultation: Normal GI:Palpation: Normal GI: Tenderness: Epigastric (abdomen is distended ,tympanic , mainly in the epigastrium .. BS hypoactive ,); negative Guarding or Rigidity Skin: Normal Musculoskeletal: Normal Psychiatric: Normal Mood Description: Calm Affect: Normal Speech Pattern: Clear and Appropriate Laboratory and Diagnostics Result Diagrams: 05/14/22 04:00 05/14/22 04:00 Labs: 05/10/22 17:23 Urine,Catheterized Urine Culture - Final Escherichia Coli Laboratory WBC 10.9 X10^3/uL (3.6-10.0) H 05/14/22 04:00 RBC 3.40 X10^6/uL (3.5-5.4) L 05/14/22 04:00 Hgb 9.1 g/dL (12.0-16.0) L 05/14/22 04:00 Hct 27.6 % (36.0-47.0) L 05/14/22 04:00 MCV 81.1 fL (80.0-100.0) 05/14/22 04:00 MCH 26.9 pg (27.0-34.0) L 05/14/22 04:00 MCHC 33.1 g/dL (33.0-35.0) 05/14/22 04:00 RDW 17.5 % (11.6-16.5) H 05/14/22 04:00 Plt Count 277 X10^3/uL (150.0-450.0) 05/14/22 04:00 MPV 10.1 fL (7.4-11.0) 05/14/22 04:00 Neut % (Auto) 73.6 % (42.0-75.0) 05/14/22 04:00 Lymph % (Auto) 15.3 % (21.0-51.0) L 05/14/22 04:00 [place] % (Auto) 8.9 % (0.0-13.0) 05/14/22 04:00 Eos % (Auto) 1.7 % (0.9-2.9) 05/14/22 04:00 Baso % (Auto) 0.5 % (0.2-1.0) 05/14/22 04:00 Neut # (Auto) 8.1 x10^3/uL (2.2-4.8) H 05/14/22 04:00 Lymph # (Auto) 1.7 X10^3/uL (1.3-2.9) 05/14/22 04:00 [place] # (Auto) 1.0 x10^3/uL (0.3-0.8) H 05/14/22 04:00 Eos # (Auto) 0.2 x10^3/uL (0.0-0.2) 05/14/22 04:00 Baso # (Auto) 0.0 X10^3/uL (0.0-0.1) 05/14/22 04:00 Absolute Nucleated RBC 0.0 /100WBC 05/14/22 04:00 PT 14.7 SECONDS (11.8-14.3) 05/10/22 09:29 INR Target Range - 05/10/22 09:29 INR 1.19 (0.8-1.3) 05/10/22 09:29 APTT 46.8 SECONDS (22.9-36.5) H 05/10/22 09:29 PTT Comment - 05/10/22 09:29 Sodium 139 mmol/L (136-145) 05/14/22 04:00 Corrected Sodium 139 mmol/L (136-145) 05/14/22 04:00 Potassium 3.2 mmol/L (3.5-5.1) L 05/14/22 04:00 Chloride 100 mmol/L (98-107) 05/14/22 04:00 Carbon Dioxide 33.3 mmol/L (21-32) H 05/14/22 04:00 BUN 11 mg/dL (7-18) 05/14/22 04:00 Creatinine 0.48 mg/dL (0.55-1.02) L 05/14/22 04:00 Est GFR (MDRD) Af Amer > 60 (>60) 05/14/22 04:00 Est GFR (MDRD) Non-Af > 60 (>60) 05/14/22 04:00 Glucose 111 mg/dL (65-99) H 05/14/22 04:00 POC Glucose (mg/dL) 113 mg/dL (65-99) H 05/14/22 11:23 Lactic Acid 0.8 mmol/L (0.4-2.0) 05/10/22 13:58 Calcium 8.5 mg/dL (8.5-10.1) 05/14/22 04:00 Corrected Calcium 10.0 mg/dL (8.5-10.1) 05/14/22 04:00 Magnesium 1.9 mg/dL (2.0-2.9) L 05/14/22 04:00 Total Bilirubin 0.20 mg/dL (0.2-1.0) 05/14/22 04:00 AST 57 Units/L (15-37) H 05/14/22 04:00 ALT 120 Units/L (12-78) H 05/14/22 04:00 Alkaline Phosphatase 200 Units/L (46-116) H 05/14/22 04:00 Total Protein 6.2 g/dL (6.4-8.2) L 05/14/22 04:00 Albumin 2.1 g/dL (3.4-5.0) L 05/14/22 04:00 Globulin 4.1 g/dL (2.5-4.5) 05/14/22 04:00 Albumin/Globulin Ratio 0.5 Ratio (1.1-2.1) L 05/14/22 04:00 Specimen Type Catherized urine 05/10/22 17:23 Urine Color Yellow (YELLOW) 05/10/22 17: Urine Appearance Hazy (CLEAR) 05/10/22 17: Urine pH 6.0 (5.0 - 8.0) 05/10/22 17: Ur Specific [place] 1.015 (1.000-1.030) 05/10/22 17: Urine Protein 3+ (NEGATIVE) 05/10/22 17: Urine Glucose (UA) Negative (NEGATIVE) 05/10/22 17: Urine Ketones Negative (NEGATIVE) 05/10/22 17: Urine Blood 4+ (NEGATIVE) 05/10/22 17: Urine Nitrite Positive (NEGATIVE) 05/10/22: Urine Bilirubin Negative (NEGATIVE) 05/10/22: Urine Urobilinogen Normal (NORMAL) 05/10/22 17: Ur Leukocyte Esterase 3+ (NEGATIVE) 05/10/22 17: Urine RBC 30-50 /HPF (0-3) A 05/10/22 17: Urine WBC 20-30 /HPF (0-5) A 05/10/22 17: Ur Squamous Epith Cells Rare /HPF (NEGATIVE) 05/10/22 17: Urine Bacteria 1+ /HPF (NEGATIVE) 05/10/22 17: Ur Culture Indicated? Yes/culture set up 05/10/22 17: Problem Patient Problems: distended stomach with gastroparesis , DM. Hypokalemia . confinement to bed . to increase Reglan to 10 mg TID .add K to correct hypokalemia . if no improvement will insert NGT ..
[2022-05-14] MEDS: MAGNESIUM SULFATE 1 GRAM/100 mL PREMIX 1 G/100 ML BAG IV PRN ×2 (12:40→14:10)
[2022-05-14] MEDS: REGLAN TAB 10 MG PO SCH ×2 (17:07→20:16)
[2022-05-14] MEDS: MELATONIN PO SCH (20:16)
[2022-05-14] MEDS: MILK OF MAGNESIA PO SCH (20:19)
[2022-05-14] MEDS: KLOR-CON PO PRN (20:19)
[2022-05-14] MEDS: DULCOLAX TAB EC 5 MG PO SCH (20:34)
[2022-05-15] MEDS: NORCO 10/325 TAB PO PRN ×3 (00:02→17:07)
[2022-05-15] MEDS: TYLENOL 325 MG TAB PO PRN ×2 (03:27→21:04)
[2022-05-15 05:09] LABS: BASOPHILS # (AUTO) 0.1 X10^3/uL (0.0-0.1); BASOPHILS % (AUTO) 0.9 % (0.2-1.0); EOSINOPHILS # (AUTO) 0.2 x10^3/uL (0.0-0.2); EOSINOPHILS % (AUTO) 1.5 % (0.9-2.9); HEMOGLOBIN 9.1 g/dL (12.0-16.0); LYMPHOCYTES # (AUTO) 1.6 X10^3/uL (1.3-2.9); LYMPHOCYTES % (AUTO) 16.5 % (21.0-51.0); MEAN CORPUSCULAR HEMOGLOBIN 27.2 pg (27.0-34.0); MEAN CORPUSCULAR HGB CONC 33.6 g/dL (33.0-35.0); MEAN CORPUSCULAR VOLUME 80.9 fL (80.0-100.0); MEAN PLATELET VOLUME 9.7 fL (7.4-11.0); MONOCYTES # (AUTO) 0.7 x10^3/uL (0.3-0.8); NEUTROPHILS # (AUTO) 7.4 x10^3/uL (2.2-4.8); NEUTROPHILS % (AUTO) 74.1 % (42.0-75.0); RED BLOOD COUNT 3.34 X10^6/uL (3.5-5.4); RED CELL DISTRIBUTION WIDTH 16.6 % (11.6-16.5)
[2022-05-15] MEDS: MERREM VIAL 1 G in NS 100 ML IV 100 ML IV SCH ×3 (05:20→21:05)
[2022-05-15 05:26] LABS: ALANINE AMINOTRANSFERASE 100 Units/L (12-78); ALBUMIN 2.1 g/dL (3.4-5.0); ALKALINE PHOSPHATASE 190 Units/L (46-116); ASPARTATE AMINO TRANSFERASE 46 Units/L (15-37); BLOOD UREA NITROGEN 11 mg/dL (7-18); CALCIUM 8.7 mg/dL (8.5-10.1); CHLORIDE 100 mmol/L (98-107); COR CA(FOR HYPOALB) 10.2 mg/dL (8.5-10.1); COR NA(FOR HYPERGLY) 138 mmol/L (136-145); CREATININE 0.47 mg/dL (0.55-1.02); MAGNESIUM 1.8 mg/dL (2.0-2.9); SODIUM 138 mmol/L (136-145); TOTAL PROTEIN 6.3 g/dL (6.4-8.2); eGFR NON BLACK RACES > 60 (>60)
[2022-05-15] MEDS: REGLAN TAB 10 MG PO SCH ×4 (05:36→21:02)
[2022-05-15] MEDS: MAGNESIUM SULFATE 1 GRAM/100 mL PREMIX 1 G/100 ML BAG IV PRN ×2 (06:16→08:15)
[2022-05-15] MEDS ORDERED: ZESTRIL TAB 20 MG ONE (08:07)
[2022-05-15] MEDS: REQUIP PO SCH ×2 (08:13→21:03)
[2022-05-15] MEDS: COLACE CAP 100 MG PO SCH ×2 (08:13→21:03)
[2022-05-15] MEDS: CARDIZEM CD 240 MG 24-HR PO SCH (08:14)
[2022-05-15] MEDS: HEMOCYTE-PLUS PO SCH (08:14)
[2022-05-15] MEDS: PEPCID TAB 20 MG PO SCH ×2 (08:14→21:02)
[2022-05-15] MEDS: SINGULAIR TAB 10 MG PO SCH (08:14)
[2022-05-15] MEDS: CITRACAL + VITAMIN D PO SCH (08:14)
[2022-05-15] MEDS: LINZESS PO SCH (08:14)
[2022-05-15] MEDS: ZESTRIL TAB 20 MG PO SCH (08:14)
[2022-05-15] MEDS: PROTONIX INJ 40 MG VIAL IVP SCH (08:15)
[2022-05-15] MEDS: LOVENOX INJ 40 MG SYR SC SCH (08:15)
[2022-05-15] MEDS: TOVIAZ PO SCH (11:51)
[2022-05-15] MEDS ORDERED: NS 1,000 ML IV 1,000 ML ONE (17:34)
[2022-05-15] MEDS ORDERED: RESTORIL CAP 15 MG PO PRN (20:50)
[2022-05-15] MEDS: MELATONIN PO SCH (21:02)
[2022-05-15] MEDS: DULCOLAX TAB EC 5 MG PO SCH (21:03)
[2022-05-15] MEDS: MILK OF MAGNESIA PO SCH (21:05)
[2022-05-16] MEDS: NORCO 10/325 TAB PO PRN ×3 (01:14→17:55)
[2022-05-16 05:14] LABS: BASOPHILS % (AUTO) 0.6 % (0.2-1.0); EOSINOPHILS # (AUTO) 0.1 x10^3/uL (0.0-0.2); EOSINOPHILS % (AUTO) 1.6 % (0.9-2.9); HEMATOCRIT 26.7 % (36.0-47.0); LYMPHOCYTES # (AUTO) 1.7 X10^3/uL (1.3-2.9); LYMPHOCYTES % (AUTO) 20.4 % (21.0-51.0); MEAN CORPUSCULAR HEMOGLOBIN 27.2 pg (27.0-34.0); MEAN CORPUSCULAR HGB CONC 33.5 g/dL (33.0-35.0); MEAN PLATELET VOLUME 9.9 fL (7.4-11.0); MONOCYTES # (AUTO) 0.6 x10^3/uL (0.3-0.8); MONOCYTES % (AUTO) 7.4 % (0.0-13.0); NEUTROPHILS # (AUTO) 5.9 x10^3/uL (2.2-4.8); RED CELL DISTRIBUTION WIDTH 17.3 % (11.6-16.5); WHITE BLOOD COUNT 8.4 X10^3/uL (3.6-10.0)
[2022-05-16] MEDS: MERREM VIAL 1 G in NS 100 ML IV 100 ML IV SCH ×3 (05:16→22:02)
[2022-05-16 05:21] LABS: ALANINE AMINOTRANSFERASE 96 Units/L (12-78); ALBUMIN 2.1 g/dL (3.4-5.0); ALKALINE PHOSPHATASE 201 Units/L (46-116); ASPARTATE AMINO TRANSFERASE 56 Units/L (15-37); BLOOD UREA NITROGEN 9 mg/dL (7-18); CALCIUM 8.4 mg/dL (8.5-10.1); CARBON DIOXIDE 32.5 mmol/L (21-32); CHLORIDE 100 mmol/L (98-107); COR CA(FOR HYPOALB) 9.9 mg/dL (8.5-10.1); COR NA(FOR HYPERGLY) 140 mmol/L (136-145); CREATININE 0.48 mg/dL (0.55-1.02); MAGNESIUM 1.8 mg/dL (2.0-2.9); SODIUM 139 mmol/L (136-145); TOTAL PROTEIN 6.2 g/dL (6.4-8.2); eGFR NON BLACK RACES > 60 (>60)
[2022-05-16] MEDS: REGLAN TAB 10 MG PO SCH ×4 (05:37→20:21)
[2022-05-16] MEDS: KLOR-CON PO PRN (05:55)
--- NOTE | 2022-05-16 07:40 | PCM.PROG ---
Progress Note Progress Note for Day of Date of Exam: 05/13/22 Subjective Subjective: Patient resting comfortably in bed. No acute events overnight. She had small bowel movements. Denies N/V. She has been tolerating PO intake. Labs/imaging reviewed KUB: Gas distended structure, likely stomach, may be due to gastric outlet obstruction or gastroparesis. Urine and Blood Cx: E.coli ESBL + Plan: Consult general surgery for further evaluation, pt was started on reglan f or gastroparesis. Continue antibiotics Merrem. Continue home medications. Monitor I&Os. PT/OT as tolerated. Monitor labs and imaging. Past Medical Family Social History Allergies: Allergies azithromycin Allergy (Unknown, Verified 05/12/22 10:25) codeine Allergy (Unknown, Verified 05/12/22 10:25) morphine Allergy (Unknown, Verified 05/12/22 10:25) IV DYE Allergy (Unknown, Uncoded 05/12/22 10:25) Vital Signs and I&O's Vital Signs: Temperature 98.3 F Pulse Rate 58 Respiratory Rate 15 Blood Pressure [Right Arm] 130/78 Blood Pressure [Left Arm] 135/68 Blood Pressure 128/61 O2 Sat by Pulse Oximetry 100 Intake and Output: Intake & Output 05/13/22 05/14/22 05/15/22 05/16/22 23:59 23:59 23:59 23:59 Intake Total 2054 / 2054 2189 / 2189 1427 / 1427 170 / 170 Output Total 2675 / 2675 1702 / 1702 2049 / 2049 375 / 375 Balance -620 / -620 487 / 487 -623 / -623 -205 / -205 Physical Exam Oriented: Normal Eyes: Normal Ear: Normal Nose: Normal Throat: Normal Respiratory: Normal Cardiovascular: Normal Auscultation: Bowel Sounds: Normal Tenderness: Epigastric (abdomen is distended ,tympanic , mainly in the epigastrium .. BS hypoactive ,); negative Guarding or Rigidity Skin: Normal Musculoskeletal: Normal Psychiatric: Normal Mood Description: Calm Affect: Normal Speech Pattern: Clear and Appropriate Laboratory and Diagnostics Result Diagrams: 05/16/22 04:10 05/16/22 04:10 Labs: 05/13/22 09:08 Blood Blood Culture - Preliminary 05/13/22 08:58 Blood Blood Culture - Preliminary 05/10/22 17:23 Urine,Catheterized Urine Culture - Final Escherichia Coli Laboratory WBC 8.4 X10^3/uL (3.6-10.0) 05/16/22 04:10 RBC 3.30 X10^6/uL (3.5-5.4) L 05/16/22 04:10 Hgb 9.0 g/dL (12.0-16.0) L 05/16/22 04:10 Hct 26.7 % (36.0-47.0) L 05/16/22 04:10 MCV 81.0 fL (80.0-100.0) 05/16/22 04:10 MCH 27.2 pg (27.0-34.0) 05/16/22 04:10 MCHC 33.5 g/dL (33.0-35.0) 05/16/22 04:10 RDW 17.3 % (11.6-16.5) H 05/16/22 04:10 Plt Count 324 X10^3/uL (150.0-450.0) 05/16/22 04:10 MPV 9.9 fL (7.4-11.0) 05/16/22 04:10 Neut % (Auto) 70.0 % (42.0-75.0) 05/16/22 04:10 Lymph % (Auto) 20.4 % (21.0-51.0) L 05/16/22 04:10 [place] % (Auto) 7.4 % (0.0-13.0) 05/16/22 04:10 Eos % (Auto) 1.6 % (0.9-2.9) 05/16/22 04:10 Baso % (Auto) 0.6 % (0.2-1.0) 05/16/22 04:10 Neut # (Auto) 5.9 x10^3/uL (2.2-4.8) H 05/16/22 04:10 Lymph # (Auto) 1.7 X10^3/uL (1.3-2.9) 05/16/22 04:10 [place] # (Auto) 0.6 x10^3/uL (0.3-0.8) 05/16/22 04:10 Eos # (Auto) 0.1 x10^3/uL (0.0-0.2) 05/16/22 04:10 Baso # (Auto) 0.0 X10^3/uL (0.0-0.1) 05/16/22 04:10 Absolute Nucleated RBC 0.0 /100WBC 05/16/22 04:10 PT 14.7 SECONDS (11.8-14.3) 05/10/22 09:29 INR Target Range - 05/10/22 09:29 INR 1.19 (0.8-1.3) 05/10/22 09:29 APTT 46.8 SECONDS (22.9-36.5) H 05/10/22 09:29 PTT Comment - 05/10/22 09:29 Sodium 139 mmol/L (136-145) 05/16/22 04:10 Corrected Sodium 140 mmol/L (136-145) 05/16/22 04:10 Potassium 3.4 mmol/L (3.5-5.1) L 05/16/22 04:10 Chloride 100 mmol/L (98-107) 05/16/22 04:10 Carbon Dioxide 32.5 mmol/L (21-32) H 05/16/22 04:10 BUN 9 mg/dL (7-18) 05/16/22 04:10 Creatinine 0.48 mg/dL (0.55-1.02) L 05/16/22 04:10 Est GFR (MDRD) Af Amer > 60 (>60) 05/16/22 04:10 Est GFR (MDRD) Non-Af > 60 (>60) 05/16/22 04:10 Glucose 125 mg/dL (65-99) H 05/16/22 04:10 POC Glucose (mg/dL) 120 mg/dL (65-99) H 05/16/22 05:25 Lactic Acid 0.8 mmol/L (0.4-2.0) 05/10/22 13:58 Calcium 8.4 mg/dL (8.5-10.1) L 05/16/22 04:10 Corrected Calcium 9.9 mg/dL (8.5-10.1) 05/16/22 04:10 Magnesium 1.8 mg/dL (2.0-2.9) L 05/16/22 04:10 Total Bilirubin 0.20 mg/dL (0.2-1.0) 05/16/22 04:10 AST 56 Units/L (15-37) H 05/16/22 04:10 ALT 96 Units/L (12-78) H 05/16/22 04:10 Alkaline Phosphatase 201 Units/L (46-116) H 05/16/22 04:10 Total Protein 6.2 g/dL (6.4-8.2) L 05/16/22 04:10 Albumin 2.1 g/dL (3.4-5.0) L 05/16/22 04:10 Globulin 4.1 g/dL (2.5-4.5) 05/16/22 04:10 Albumin/Globulin Ratio 0.5 Ratio (1.1-2.1) L 05/16/22 04:10 Specimen Type Catherized urine 05/10/22 17:23 Urine Color Yellow (YELLOW) 05/10/22 17:23 Urine Appearance Hazy (CLEAR) 05/10/22 17: Urine pH 6.0 (5.0 - 8.0) 05/10/22 17:23 Ur Specific [place] 1.015 (1.000-1.030) 05/10/22 17: Urine Protein 3+ (NEGATIVE) 05/10/22 17: Urine Glucose (UA) Negative (NEGATIVE) 05/10/22 17: Urine Ketones Negative (NEGATIVE) 05/10/22 17: Urine Blood 4+ (NEGATIVE) 05/10/22 17: Urine Nitrite Positive (NEGATIVE) 05/10/22 17: Urine Bilirubin Negative (NEGATIVE) 05/10/22 17: Urine Urobilinogen Normal (NORMAL) 05/10/22 17:23 Ur Leukocyte Esterase 3+ (NEGATIVE) 05/10/22 17: Urine RBC 30-50 /HPF (0-3) A 05/10/22 17: Urine WBC 20-30 /HPF (0-5) A 05/10/22 17: Ur Squamous Epith Cells Rare /HPF (NEGATIVE) 05/10/22 17: Urine Bacteria 1+ /HPF (NEGATIVE) 05/10/22 17:23 Ur Culture Indicated? Yes/culture set up 05/10/22 17:23 Plan (1) UTI (urinary tract infection): Status: Acute (2) Bacteremia: Status: Acute (3) Constipation: Status: Acute (4) Hepatic steatosis: Status: Acute (5) Abdominal pain: Status: Acute (6) Transaminitis: Status: Acute (7) GERD (gastroesophageal reflux disease): Status: Chronic Qualifiers: Esophagitis presence: without esophagitis Qualified Code(s): K21.9 - Gastro-esophageal reflux disease without esophagitis (8) CAD (coronary artery disease): Status: Chronic (9) Osteoarthritis: Status: Chronic (10) Essential hypertension: Status: Chronic (11) Diabetes mellitus: Status: Acute
--- NOTE | 2022-05-16 08:36 | DR.PROGNOT ---
HOSPITAL PROGRESS NOTE Progress Note for Day of: Progress Note Date: 05/16/22 Chief Complaint Chief Complaint: denies abdominal pain , no vomiting . still with moderate abdominal distention . WBC 8.4 .. normal BUN , Creat afebrile . History of Present Illness History of Present Illness: no changes .. diabetic , very limited ambulation . UTI Past Medical Family Social History Past Med/Fam/Surg Hx: No changes since H&P Allergies: Allergies azithromycin Allergy (Unknown, Verified 05/12/22 10:25) codeine Allergy (Unknown, Verified 05/12/22 10:25) morphine Allergy (Unknown, Verified 05/12/22 10:25) IV DYE Allergy (Unknown, Uncoded 05/12/22 10:25) Vital Signs Vital Signs: Temperature 98.3 F Pulse Rate 68 Respiratory Rate 30 Blood Pressure [Right Arm] 130/78 Blood Pressure [Left Arm] 135/68 Blood Pressure 158/72 O2 Sat by Pulse Oximetry 100 Physical Exam Oriented: Normal Eyes: Normal Ear: Normal Nose: Normal Throat: Normal Respiratory: Normal Cardiovascular: Normal GI:Auscultation: Normal GI:Palpation: Normal GI: Tenderness: Epigastric (abdomen is soft mederately distended ,tympanic , mainly in the epigastrium .. BS hypoactive ,); negative Guarding or Rigidity Skin: Normal Musculoskeletal: Normal Psychiatric: Normal Mood Description: Calm Affect: Normal Speech Pattern: Clear and Appropriate Laboratory and Diagnostics Result Diagrams: 05/16/22 04:10 05/16/22 04:10 Labs: 05/13/22 09:08 Blood Blood Culture - Preliminary 05/13/22 08:58 Blood Blood Culture - Preliminary 05/10/22 17:23 Urine,Catheterized Urine Culture - Final Escherichia Coli Laboratory WBC 8.4 X10^3/uL (3.6-10.0) 05/16/22 04:10 RBC 3.30 X10^6/uL (3.5-5.4) L 05/16/22 04:10 Hgb 9.0 g/dL (12.0-16.0) L 05/16/22 04:10 Hct 26.7 % (36.0-47.0) L 05/16/22 04:10 MCV 81.0 fL (80.0-100.0) 05/16/22 04:10 MCH 27.2 pg (27.0-34.0) 05/16/22 04:10 MCHC 33.5 g/dL (33.0-35.0) 05/16/22 04:10 RDW 17.3 % (11.6-16.5) H 05/16/22 04:10 Plt Count 324 X10^3/uL (150.0-450.0) 05/16/22 04:10 MPV 9.9 fL (7.4-11.0) 05/16/22 04:10 Neut % (Auto) 70.0 % (42.0-75.0) 05/16/22 04:10 Lymph % (Auto) 20.4 % (21.0-51.0) L 05/16/22 04:10 [place] % (Auto) 7.4 % (0.0-13.0) 05/16/22 04:10 Eos % (Auto) 1.6 % (0.9-2.9) 05/16/22 04:10 Baso % (Auto) 0.6 % (0.2-1.0) 05/16/22 04:10 Neut # (Auto) 5.9 x10^3/uL (2.2-4.8) H 05/16/22 04:10 Lymph # (Auto) 1.7 X10^3/uL (1.3-2.9) 05/16/22 04:10 [place] # (Auto) 0.6 x10^3/uL (0.3-0.8) 05/16/22 04:10 Eos # (Auto) 0.1 x10^3/uL (0.0-0.2) 05/16/22 04:10 Baso # (Auto) 0.0 X10^3/uL (0.0-0.1) 05/16/22 04:10 Absolute Nucleated RBC 0.0 /100WBC 05/16/22 04:10 PT 14.7 SECONDS (11.8-14.3) 05/10/22 09:29 INR Target Range - 05/10/22 09:29 INR 1.19 (0.8-1.3) 05/10/22 09:29 APTT 46.8 SECONDS (22.9-36.5) H 05/10/22 09:29 PTT Comment - 05/10/22 09:29 Sodium 139 mmol/L (136-145) 05/16/22 04:10 Corrected Sodium 140 mmol/L (136-145) 05/16/22 04:10 Potassium 3.4 mmol/L (3.5-5.1) L 05/16/22 04:10 Chloride 100 mmol/L (98-107) 05/16/22 04:10 Carbon Dioxide 32.5 mmol/L (21-32) H 05/16/22 04:10 BUN 9 mg/dL (7-18) 05/16/22 04:10 Creatinine 0.48 mg/dL (0.55-1.02) L 05/16/22 04:10 Est GFR (MDRD) Af Amer > 60 (>60) 05/16/22 04:10 Est GFR (MDRD) Non-Af > 60 (>60) 05/16/22 04:10 Glucose 125 mg/dL (65-99) H 05/16/22 04:10 POC Glucose (mg/dL) 120 mg/dL (65-99) H 05/16/22 05:25 Lactic Acid 0.8 mmol/L (0.4-2.0) 05/10/22 13:58 Calcium 8.4 mg/dL (8.5-10.1) L 05/16/22 04:10 Corrected Calcium 9.9 mg/dL (8.5-10.1) 05/16/22 04:10 Magnesium 1.8 mg/dL (2.0-2.9) L 05/16/22 04:10 Total Bilirubin 0.20 mg/dL (0.2-1.0) 05/16/22 04:10 AST 56 Units/L (15-37) H 05/16/22 04:10 ALT 96 Units/L (12-78) H 05/16/22 04:10 Alkaline Phosphatase 201 Units/L (46-116) H 05/16/22 04:10 Total Protein 6.2 g/dL (6.4-8.2) L 05/16/22 04:10 Albumin 2.1 g/dL (3.4-5.0) L 05/16/22 04:10 Globulin 4.1 g/dL (2.5-4.5) 05/16/22 04:10 Albumin/Globulin Ratio 0.5 Ratio (1.1-2.1) L 05/16/22 04:10 Specimen Type Catherized urine 05/10/22 17: Urine Color Yellow (YELLOW) 05/10/22 17: Urine Appearance Hazy (CLEAR) 05/10/22 17: Urine pH 6.0 (5.0 - 8.0) 05/10/22 17: Ur Specific [place] 1.015 (1.000-1.030) 05/10/22 17: Urine Protein 3+ (NEGATIVE) 05/10/22 17: Urine Glucose (UA) Negative (NEGATIVE) 05/10/22: Urine Ketones Negative (NEGATIVE) 05/10/22: Urine Blood 4+ (NEGATIVE) 05/10/22: Urine Nitrite Positive (NEGATIVE) 05/10/22: Urine Bilirubin Negative (NEGATIVE) 05/10/22 17: Urine Urobilinogen Normal (NORMAL) 05/10/22 17: Ur Leukocyte Esterase 3+ (NEGATIVE) 05/10/22 17: Urine RBC 30-50 /HPF (0-3) A 05/10/22 17: Urine WBC 20-30 /HPF (0-5) A 05/10/22 17: Ur Squamous Epith Cells Rare /HPF (NEGATIVE) 05/10/22 17: Urine Bacteria 1+ /HPF (NEGATIVE) 05/10/22: Ur Culture Indicated? Yes/culture set up 05/10/22 17: Assessment and Plan 1: ileus with gastric distention and gastroparesis . hypokalemia . to advance diet , add more K to her IV . on IV Reglan . KUB today .. EGD in no improvement ..
[2022-05-16] MEDS ORDERED: ZESTRIL TAB 20 MG ONE ×2 (09:02→13:03)
[2022-05-16] MEDS: LOVENOX INJ 40 MG SYR SC SCH (09:42)
[2022-05-16] MEDS: HEMOCYTE-PLUS PO SCH (09:43)
[2022-05-16] MEDS: REQUIP PO SCH ×2 (09:43→20:21)
[2022-05-16] MEDS: PROTONIX INJ 40 MG VIAL IVP SCH (09:43)
[2022-05-16] MEDS: CARDIZEM CD 240 MG 24-HR PO SCH (09:43)
[2022-05-16] MEDS: ZESTRIL TAB 20 MG PO SCH (09:44)
[2022-05-16] MEDS: COLACE CAP 100 MG PO SCH ×2 (09:44→20:19)
[2022-05-16] MEDS: ATIVAN TAB 1 MG PO PRN ×2 (09:44→21:58)
[2022-05-16] MEDS: PEPCID TAB 20 MG PO SCH ×2 (09:44→20:20)
[2022-05-16] MEDS: SINGULAIR TAB 10 MG PO SCH (09:44)
[2022-05-16] MEDS: LINZESS PO SCH (09:44)
[2022-05-16] MEDS: TOVIAZ PO SCH (09:45)
[2022-05-16] MEDS: CITRACAL + VITAMIN D PO SCH (09:45)
[2022-05-16] MEDS ORDERED: ZESTRIL TAB 20 MG PO ONE (12:20)
--- NOTE | 2022-05-16 12:45 | RAD ---
HISTORYDistensionSTUDYKUBCOMPARISON May 14, 2022FINDINGSThere is persistent marked gaseous dilatation of the stomach. The intestinal gas pattern is unremarkable otherwise although detail is significantly limited on these images.IMPRESSIONPersistent marked gaseous distension of the stomach, which may be related to gastric outlet obstruction or atony. Nasogastric decompression may be of benefit.Electronically signed by: PEG BROCK (May 16, 2022 12:44:26)
[2022-05-16] MEDS: TYLENOL 325 MG TAB PO PRN (13:25)
--- NOTE | 2022-05-16 14:58 | EKG ---
Test Reason : pt currently in ICU Blood Pressure : */* mmHG Vent. Rate : 73 BPM Atrial Rate : 73 BPM P-R Int : 154 ms QRS Dur : 102 ms QT Int : 432 ms P-R-T Axes : 19 37 15 degrees QTc Int : 475 ms Normal sinus rhythm Incomplete right bundle branch block Borderline ECG No previous ECGs available Confirmed by Bharathi Freeman ([id number]) on 05/17/2022 7:40:35 AM Referred By: Confirmed By: Bharathi Freeman
[2022-05-16] MEDS: MILK OF MAGNESIA PO SCH (20:19)
[2022-05-16] MEDS: DULCOLAX TAB EC 5 MG PO SCH (20:20)
[2022-05-16] MEDS: MELATONIN PO SCH (20:20)
[2022-05-17 05:23] LABS: BASOPHILS % (AUTO) 0.7 % (0.2-1.0); EOSINOPHILS # (AUTO) 0.1 x10^3/uL (0.0-0.2); EOSINOPHILS % (AUTO) 1.4 % (0.9-2.9); HEMATOCRIT 27.3 % (36.0-47.0); HEMOGLOBIN 9.2 g/dL (12.0-16.0); LYMPHOCYTES # (AUTO) 1.4 X10^3/uL (1.3-2.9); LYMPHOCYTES % (AUTO) 19.3 % (21.0-51.0); MEAN CORPUSCULAR HEMOGLOBIN 27.4 pg (27.0-34.0); MEAN CORPUSCULAR HGB CONC 33.7 g/dL (33.0-35.0); MEAN CORPUSCULAR VOLUME 81.3 fL (80.0-100.0); MEAN PLATELET VOLUME 9.7 fL (7.4-11.0); MONOCYTES # (AUTO) 0.5 x10^3/uL (0.3-0.8); MONOCYTES % (AUTO) 7.1 % (0.0-13.0); NEUTROPHILS # (AUTO) 5.1 x10^3/uL (2.2-4.8); NEUTROPHILS % (AUTO) 71.5 % (42.0-75.0); RED BLOOD COUNT 3.36 X10^6/uL (3.5-5.4); RED CELL DISTRIBUTION WIDTH 17.3 % (11.6-16.5); WHITE BLOOD COUNT 7.1 X10^3/uL (3.6-10.0)
[2022-05-17] MEDS: REGLAN TAB 10 MG PO SCH ×2 (05:30→11:19)
[2022-05-17] MEDS: MERREM VIAL 1 G in NS 100 ML IV 100 ML IV SCH ×2 (05:31→14:15)
[2022-05-17 05:32] LABS: ALANINE AMINOTRANSFERASE 111 Units/L (12-78); ALBUMIN 2.3 g/dL (3.4-5.0); ALKALINE PHOSPHATASE 196 Units/L (46-116); ASPARTATE AMINO TRANSFERASE 60 Units/L (15-37); BLOOD UREA NITROGEN 7 mg/dL (7-18); CALCIUM 8.5 mg/dL (8.5-10.1); CARBON DIOXIDE 35.4 mmol/L (21-32); CHLORIDE 103 mmol/L (98-107); COR CA(FOR HYPOALB) 9.9 mg/dL (8.5-10.1); COR NA(FOR HYPERGLY) 142 mmol/L (136-145); CREATININE 0.42 mg/dL (0.55-1.02); SODIUM 141 mmol/L (136-145); TOTAL PROTEIN 6.5 g/dL (6.4-8.2); eGFR NON BLACK RACES > 60 (>60)
[2022-05-17] MEDS ORDERED: DIPRIVAN VIAL 20 ML ONE (07:31)
--- NOTE | 2022-05-17 08:42 | PCM.PROG ---
Progress Note Progress Note for Day of Date of Exam: 05/16/22 Subjective Subjective: This morning patient is resting in bed. No acute events overnight. She reports abdominal swelling has improved and minimal abdominal pain. Denies N/V. She has been tolerating PO intake. Labs/imaging reviewed: KUB: Persistent marked gaseous distension of the stomach, which may be related to gastric outlet obstruction or atony. Urine and Blood Cx: E.coli ESBL +, Repeat blood culture NGTD Plan: General surgery plan for EGD tomorrow morning. Pt is on Reglan for gastroparesis. Continue antibiotics Merrem. Continue home medications. Monitor I&Os. PT/OT as tolerated. Monitor labs and imaging. Past Medical Family Social History Past Med/Fam/Surg Hx: No changes since H&P Allergies: Allergies azithromycin Allergy (Unknown, Verified 05/12/22 10:25) codeine Allergy (Unknown, Verified 05/12/22 10:25) morphine Allergy (Unknown, Verified 05/12/22 10:25) IV DYE Allergy (Unknown, Uncoded 05/12/22 10:25) Review of Systems ROS: Changes notes (describe) ROS changes noted: See HPI Vital Signs and I&O's Vital Signs: Temperature 98.2 F Pulse Rate [Apical] 82 Pulse Rate 69 Respiratory Rate 18 Blood Pressure [Right Arm] 130/78 Blood Pressure [Left Arm] 142/62 Blood Pressure 151/65 O2 Sat by Pulse Oximetry 95 Intake and Output: Intake & Output 05/14/22 05/15/22 05/16/22 05/17/22 23:59 23:59 23:59 23:59 Intake Total 2189 / 2189 1427 / 1427 860 / 860 230 / 230 Output Total 1702 / 1702 2050 / 2050 3275 / 3275 500 / 500 Balance 487 / 487 -623 / -623 -2415 / -2415 -270 / -270 Physical Exam Oriented: Normal Eyes: Normal Ear: Normal Nose: Normal Throat: Normal Respiratory: Normal Cardiovascular: Normal Auscultation: Bowel Sounds: Normal Tenderness: Epigastric (abdomen is soft moderately distended ,tympanic , mainly in the epigastrium,+BS); negative Guarding or Rigidity Skin: Normal Musculoskeletal: Normal Psychiatric: Normal Mood Description: Calm Affect: Normal Speech Pattern: Clear and Appropriate Laboratory and Diagnostics Result Diagrams: 05/17/22 04:00 05/17/22 04:00 Labs: 05/13/22 09:08 Blood Blood Culture - Preliminary 05/13/22 08:58 Blood Blood Culture - Preliminary 05/10/22 17:23 Urine,Catheterized Urine Culture - Final Escherichia Coli Laboratory WBC 7.1 X10^3/uL (3.6-10.0) 05/17/22 04:00 RBC 3.36 X10^6/uL (3.5-5.4) L 05/17/22 04:00 Hgb 9.2 g/dL (12.0-16.0) L 05/17/22 04:00 Hct 27.3 % (36.0-47.0) L 05/17/22 04:00 MCV 81.3 fL (80.0-100.0) 05/17/22 04:00 MCH 27.4 pg (27.0-34.0) 05/17/22 04:00 MCHC 33.7 g/dL (33.0-35.0) 05/17/22 04:00 RDW 17.3 % (11.6-16.5) H 05/17/22 04:00 Plt Count 332 X10^3/uL (150.0-450.0) 05/17/22 04:00 MPV 9.7 fL (7.4-11.0) 05/17/22 04:00 Neut % (Auto) 71.5 % (42.0-75.0) 05/17/22 04:00 Lymph % (Auto) 19.3 % (21.0-51.0) L 05/17/22 04:00 [place] % (Auto) 7.1 % (0.0-13.0) 05/17/22 04:00 Eos % (Auto) 1.4 % (0.9-2.9) 05/17/22 04:00 Baso % (Auto) 0.7 % (0.2-1.0) 05/17/22 04:00 Neut # (Auto) 5.1 x10^3/uL (2.2-4.8) H 05/17/22 04:00 Lymph # (Auto) 1.4 X10^3/uL (1.3-2.9) 05/17/22 04:00 [place] # (Auto) 0.5 x10^3/uL (0.3-0.8) 05/17/22 04:00 Eos # (Auto) 0.1 x10^3/uL (0.0-0.2) 05/17/22 04:00 Baso # (Auto) 0.0 X10^3/uL (0.0-0.1) 05/17/22 04:00 Absolute Nucleated RBC 0.0 /100WBC 05/17/22 04:00 PT 14.7 SECONDS (11.8-14.3) 05/10/22 09:29 INR Target Range - 05/10/22 09:29 INR 1.19 (0.8-1.3) 05/10/22 09:29 APTT 46.8 SECONDS (22.9-36.5) H 05/10/22 09:29 PTT Comment - 05/10/22 09:29 Sodium 141 mmol/L (136-145) 05/17/22 04:00 Corrected Sodium 142 mmol/L (136-145) 05/17/22 04:00 Potassium 3.9 mmol/L (3.5-5.1) 05/17/22 04:00 Chloride 103 mmol/L (98-107) 05/17/22 04:00 Carbon Dioxide 35.4 mmol/L (21-32) H 05/17/22 04:00 BUN 7 mg/dL (7-18) 05/17/22 04:00 Creatinine 0.42 mg/dL (0.55-1.02) L 05/17/22 04:00 Est GFR (MDRD) Af Amer > 60 (>60) 05/17/22 04:00 Est GFR (MDRD) Non-Af > 60 (>60) 05/17/22 04:00 Glucose 126 mg/dL (65-99) H 05/17/22 04:00 POC Glucose (mg/dL) 135 mg/dL (65-99) H 05/17/22 05:28 Lactic Acid 0.8 mmol/L (0.4-2.0) 05/10/22 13:58 Calcium 8.5 mg/dL (8.5-10.1) 05/17/22 04:00 Corrected Calcium 9.9 mg/dL (8.5-10.1) 05/17/22 04:00 Magnesium 1.8 mg/dL (2.0-2.9) L 05/16/22 04:10 Total Bilirubin 0.20 mg/dL (0.2-1.0) 05/17/22 04:00 AST 60 Units/L (15-37) H 05/17/22 04:00 ALT 111 Units/L (12-78) H 05/17/22 04:00 Alkaline Phosphatase 196 Units/L (46-116) H 05/17/22 04:00 Total Protein 6.5 g/dL (6.4-8.2) 05/17/22 04:00 Albumin 2.3 g/dL (3.4-5.0) L 05/17/22 04:00 Globulin 4.2 g/dL (2.5-4.5) 05/17/22 04:00 Albumin/Globulin Ratio 0.5 Ratio (1.1-2.1) L 05/17/22 04:00 Specimen Type Catherized urine 05/10/22 17: Urine Color Yellow (YELLOW) 05/10/22 17: Urine Appearance Hazy (CLEAR) 05/10/22 17: Urine pH 6.0 (5.0 - 8.0) 05/10/22 17: Ur Specific [place] 1.015 (1.000-1.030) 05/10/22 17: Urine Protein 3+ (NEGATIVE) 05/10/22 17: Urine Glucose (UA) Negative (NEGATIVE) 05/10/22 17: Urine Ketones Negative (NEGATIVE) 05/10/22 17: Urine Blood 4+ (NEGATIVE) 05/10/22 17: Urine Nitrite Positive (NEGATIVE) 05/10/22 17: Urine Bilirubin Negative (NEGATIVE) 05/10/22 17: Urine Urobilinogen Normal (NORMAL) 05/10/22 17: Ur Leukocyte Esterase 3+ (NEGATIVE) 05/10/22 17: Urine RBC 30-50 /HPF (0-3) A 05/10/22 17: Urine WBC 20-30 /HPF (0-5) A 05/10/22 17: Ur Squamous Epith Cells Rare /HPF (NEGATIVE) 05/10/22 17: Urine Bacteria 1+ /HPF (NEGATIVE) 05/10/22 17:23 Ur Culture Indicated? Yes/culture set up 05/10/22 17:23 Plan (1) UTI (urinary tract infection): Status: Acute (2) Bacteremia: Status: Acute (3) Constipation: Status: Acute (4) Hepatic steatosis: Status: Acute (5) Abdominal pain: Status: Resolved (6) Transaminitis: Status: Acute (7) GERD (gastroesophageal reflux disease): Status: Chronic Qualifiers: Esophagitis presence: without esophagitis Qualified Code(s): K21.9 - Gastro-esophageal reflux disease without esophagitis (8) CAD (coronary artery disease): Status: Chronic (9) Osteoarthritis: Status: Chronic (10) Essential hypertension: Status: Chronic (11) Diabetes mellitus: Status: Acute
[2022-05-17] MEDS ORDERED: ZESTRIL TAB 20 MG ONE (09:19)
[2022-05-17] MEDS: PROTONIX INJ 40 MG VIAL IVP SCH (09:28)
[2022-05-17] MEDS: LINZESS PO SCH (09:29)
[2022-05-17] MEDS: ZESTRIL TAB 20 MG PO SCH (09:29)
[2022-05-17] MEDS: CITRACAL + VITAMIN D PO SCH (09:29)
[2022-05-17] MEDS: PEPCID TAB 20 MG PO SCH (09:29)
[2022-05-17] MEDS: COLACE CAP 100 MG PO SCH (09:29)
[2022-05-17] MEDS: TOVIAZ PO SCH (09:30)
[2022-05-17] MEDS: HEMOCYTE-PLUS PO SCH (09:30)
[2022-05-17] MEDS: SINGULAIR TAB 10 MG PO SCH (09:30)
[2022-05-17] MEDS: CARDIZEM CD 240 MG 24-HR PO SCH (09:30)
[2022-05-17] MEDS: REQUIP PO SCH (09:30)
[2022-05-17] MEDS: LOVENOX INJ 40 MG SYR SC SCH (09:31)
[2022-05-17] MEDS: ATIVAN TAB 1 MG PO PRN (09:33)
[2022-05-17] MEDS: NORCO 10/325 TAB PO PRN (10:05)
[2022-05-17] MEDS ORDERED: APRESOLINE INJ 20 MG VIAL IVP ONE (13:27)
[2022-05-17 14:33] VITALS: BP 163/77
== END 2022-05-17 15:10 | DRG 690 ==
LOC: ICU 09:15
PROVIDERS: ADMIT Internal Medicine; ATTEND Internal Medicine